=== PATIENT | female | born 2000 | race Hispanic/Latino ===

== ENCOUNTER 2024-01-03 12:22 | Inpatient (IN) | payer MEDICAID, OTHER, SELFPAY ==
[~2024-01-03 12:22] MED LIST: Bupivacaine 0.25% HCL 30 ML VIAL ONE
[2024-01-03] MEDS ORDERED: Ondansetron PF 4 MG/2 ML Vial IVP PRN ×3 (12:23→19:28)
[2024-01-03] MEDS ORDERED: Tranexamic Acid 1,000 MG/10 ML VIAL IVP PRN (12:23)
[2024-01-03] MEDS ORDERED: Methylergonovine 0.2 MG/ML VIAL IM PRN (12:23)
[2024-01-03] MEDS ORDERED: fentaNYL 50 mcg/mL 1 mL Vial SLOW IVP PRN (12:23)
[2024-01-03] MEDS ORDERED: Promethazine HCl 25 MG/ML VIAL IM PRN ×3 (12:23→19:28)
[2024-01-03] MEDS ORDERED: Acetaminophen 500 MG TAB PO PRN (12:23)
[2024-01-03] MEDS ORDERED: HYDROcodone/Acetaminophen 5/325 mg Tablet PO PRN (12:23)
[2024-01-03] MEDS ORDERED: Misoprostol 200 MCG TAB PR PRN (12:23)
[2024-01-03] MEDS ORDERED: Diphenoxylate HCl/Atropine Tablet PO PRN (12:23)
[2024-01-03] MEDS ORDERED: Carboprost 250 MCG/ML AMP IM PRN (12:23)
[2024-01-03] MEDS ORDERED: hydrALAZINE 20 MG/ML VIAL SLOW IVP PRN ×2 (12:23→19:28)
[2024-01-03] MEDS ORDERED: Lidocaine 1% (PF) 30 ML VIAL SC PRN (12:23)
[2024-01-03] MEDS ORDERED: Oxytocin 30 units/NS 500 ML 500 ML IV SCH ×2 (12:30)
[2024-01-03 12:59] VITALS: BMI 33.8
[2024-01-03 13:15] LABS: Hematocrit 34.9 % (34.9-44.5); Hemoglobin 11.3 g/dL (12.0-15.5); Mean Corpuscular HGB CONC 32.4 g/dL (32.0-36.0); Mean Corpuscular Hemoglobin 24.4 pg (27.0-33.0); Mean Corpuscular Volume 75.2 fl (81.6-98.3); Mean Platelet Volume 10.5 fl (7.4-10.4); Platelet Count 317 10x3/uL (150-450); RBC Distribution Width 14.9 % (11.5-14.5); Red Blood Cell (RBC) Count 4.64 10x6/uL (3.90-5.03); White Blood Cell (WBC) Count 7.9 10x3/uL (3.5-10.5)
[2024-01-03] MEDS: Lactated Ringer's 1,000 ML IV SCH (13:15)
[2024-01-03] MEDS: Penicillin G Potassium 5 MILL.UNITS in Sodium Chloride 0.9% 100 ML IVPB SCH (13:16)
[2024-01-03] MEDS: Oxytocin 30 units/NS 500 ML 500 ML IV SCH (14:13)
[2024-01-03 14:17] LABS: HBSAg Index 0.21 S/CO (0-0.99); Hep B Surf Ag - L&D Non-Reactive S/CO (NonReactive)
[2024-01-03 14:18] LABS: Syphilis Antibody Nonreactive (Nonreactive); Syphilis Antibody Index 0.08 S/CO (<1.00 Non-Reactive)
[2024-01-03] MEDS ORDERED: Lactated Ringer's 500 ML IV PRN (16:12)
[2024-01-03] MEDS ORDERED: Naloxone HCl 0.4 mg/ml Vial IVP PRN ×2 (16:12)
[2024-01-03] MEDS ORDERED: diphenhydrAMINE 50 MG/ML VIAL IVP PRN (16:12)
[2024-01-03] MEDS ORDERED: Acetaminophen 325 MG TAB PO PRN (16:12)
[2024-01-03] MEDS ORDERED: Moisturizing Cream (Eucerin) 113 GM JAR TOP PRN (16:12)
[2024-01-03] MEDS ORDERED: ePHEDrine Sulfate 50 MG/10 ML VIAL SLOW IVP PRN (16:12)
[2024-01-03] MEDS ORDERED: Communication Order-Pharmacy FS SCH (16:15)
[2024-01-03] MEDS ORDERED: fentaNYL 2 mcg/Ropivacaine 0.2% Epidural 100 ML CADD EPIDURAL SCH (16:15)
[2024-01-03] MEDS: fentaNYL/Ropivacaine Epidural 100 ML ONE (16:37)
[2024-01-03] MEDS: Penicillin G 2.5 MILL.units 2.5 MILL.UNITS in Premix 1 BAG IVPB SCH (16:39)
[2024-01-03] MEDS ORDERED: Bisacodyl 10 MG SUPP PR PRN (19:28)
[2024-01-03] MEDS ORDERED: Lanolin Ointment 7 GM TUBE TOP PRN (19:28)
[2024-01-03] MEDS ORDERED: Preparation H Ointment 28 GM TUBE PR PRN (19:28)
[2024-01-03] MEDS ORDERED: diphenhydrAMINE 25 MG CAP PO PRN (19:28)
[2024-01-03] MEDS ORDERED: Milk Of Magnesia 30 ML UDCUP PO PRN (19:28)
[2024-01-03] MEDS ORDERED: Boostrix 0.5 ML (Tdap) VIAL (>/=7 yrs of age) IM ONE (19:28)
[2024-01-03] MEDS ORDERED: Benzocaine-Menthol 82.5 ML CAN TOP PRN (19:28)
[2024-01-03] MEDS: Ibuprofen 800 MG TAB PO PRN (19:28)
[2024-01-03] MEDS: Docusate 100 MG CAP PO SCH (20:58)
[2024-01-03] MEDS ORDERED: Ibuprofen 800 MG TAB PO SCH (22:00)
[2024-01-04] MEDS: HYDROcodone/Acetaminophen 5/325 mg Tablet PO PRN (01:57)
[2024-01-04] MEDS: Ibuprofen 800 MG TAB PO SCH (04:01)
[2024-01-04] MEDS: Prenatal Vitamin 1 TAB PO SCH (08:28)
[2024-01-04] MEDS: Ferrous Sulfate 325 MG TAB PO SCH (08:42)
[2024-01-05 16:10] VITALS: TEMP 98
[2024-01-05 19:54] VITALS: BP 125/77
== END 2024-01-05 20:20 | disposition home or self-care (01) | DRG 807 ==
LOC: CSHLD 12:22 → CSHPP 20:00
PROVIDERS: ADMIT Family Medicine; ATTEND Family Medicine
PROC: 10E0XZZ Delivery of Products of Conception, External Approach (ICD-10-PCS; principal; 2024-01-03)
PROC: 0HQ9XZZ Repair Perineum Skin, External Approach (ICD-10-PCS; 2024-01-03)
PROC: 10907ZC Drainage of Amniotic Fluid, Therapeutic from Products of Conception, Via Natural or Artificial Opening (ICD-10-PCS; 2024-01-03)
DX: O36.8130 Decreased fetal movements, third trimester, not applicable or unspecified (principal); Z37.0 Single live birth; Z3A.38 38 weeks gestation of pregnancy; O70.0 First degree perineal laceration during delivery
CPT/HCPCS: 36415; 51702; 85027; 86780; 86850; 86900; 86901; 87340; J0665; J2540; J2590; J3490; J7120